=== PATIENT | male | born 1980 | race Caucasian/White ===

== ENCOUNTER → 2016-10-16 | Outpatient (CLI) | payer OTHER ==
--- NOTE | ~2016-10-16 | CST ---
Cardiac Perfusion Imaging Demographics Patient Name CARRIE Ferro Gender Male Patient Number [id number] Race Visit Number [id number] Ethnicity [employer] ID Room Number Accession Number [id number] Height 72 inches Date of 1980 Weight 235 pounds Age 36 year(s) BSA 2.28 m Referring Physician Ashely Altman MD BMI 31.87 kg/m [facility] Date of study 10/16/2016 Physician Radiology Ector Bal MD Supervising /MLP Ashely Altman MD HI Technologist Paco Dewitt, [facility] Ordering Physician Stress electronic lab technician Stress ECG Reading Ashely Altman MD Nurse Jenna Bauer Physician Lobo Granados The procedure was explained in detail to the patient. Risks, complications and alternative treatments were reviewed. Written consent was obtained. Medications Reviewed with Patient prior to Procedure. Procedure Procedure Type: Nuclear Stress Test:Exercise Procedure Start time: 10/16/2016 06:20 Indications: Atypical Chest Pain. Conclusions Summary Perfusion Images: The overall quality of the study is good. Left ventricular cavity is noted to be normal on the stress and rest studies. There is no evidence of abnormal lung activity. The right ventricle is not visualized and cannot be assessed. Stress SPECT images demonstrate homogenous tracer distribution throughout the myocardium. Rest SPECT images demonstrate homogenous tracer distribution throughout the myocardium. Gated SPECT imaging reveals normal myocardial thickening and wall motion. The left ventricular ejection fraction was calculated to be 65%. Impression 1. Normal myocardial perfusion. 2. Normal left ventricular systolic function with an ejection fraction of 65 %. Stress Protocols Resting HR:65 bpm Resting BP:140/86 mmHg Pre-stress physical exam: Resting EKG: Normal except for one PVC Heart regular without murmur. Stress Protocol:Exercise - Brandt Peak HR:181 bpm HR response: Appropriate Peak BP:182/74 mmHg BP response: Appropriate Predicted HR: 183 bpm HR/BP product:00220 % of predicted HR: 99 Max exercise: 13.4 METS Test duration:11:31 min Reason for termination:Target heart rate Exercise effort:Excellent ECG Findings No ECG changes suggestive of ischemia. Arrhythmias No rhythm abnormality. Symptoms No chest pain. No other symptoms Complications Procedure complication: None. Stress Interpretation Good exercise tolerance. No ischemic changes at rest or with exercise. No chest pain with exercise. This is a normal exercise portion of the stress test. Myoview Study to follow. Imaging Results Summed scores - Summed stress score: 0 - Summed rest score: 0 - Summed difference score: 0 Stress ejection Ejection fraction:65 % EDV :141 ml ESV :49 ml Stroke volume :92 ml LV mass :170 gr Imaging Protocols Rest Stress Isotope:Tc99m Myoview IV Isotope: Tc99m Myoview IV Isotope dose:10.5 mCi Isotope dose:31.7 mCi Date:10/16/2016 06:21 Date:10/16/2016 07:35 Technique: SPECT Technique: Gated Supine SPECT Supine Scan Time:30 minutes post injection Scan Time:15-30 minutes post injection Medical History Admission Data Admission date: 10/16/2016 Admission Time: 06:01 Hospital Status: Outpatient. Signatures
== END | disposition home or self-care (01) ==
LOC: CARD 06:01
DX: R07.89 Other chest pain (principal)